=== PATIENT | male | born 1980 | race Caucasian/White ===

== ENCOUNTER 2016-04-27 21:32 | Emergency (ER) | payer OTHER ==
[~2016-04-27] VITALS: Ht 172.7 cm; Wt 76.9 kg
[2016-04-27 23:55] LABS: EOSINOPHIL (%) 3.1 % (0-5); EOSINOPHIL COUNT 0.3 K/uL (0-0.3); IMMATURE GRANULOCYTE (%) 0.3 % (0.0-0.7); IMMATURE GRANULOCYTE COUNT 0.3 K/uL; LYMPHOCYTE COUNT 1.9 K/uL (1.0-2.8); MCH 32.7 PG (29.0-34.0); MCHC 35.6 G/DL (30.0-36.0); MCV 91.9 FL (86-99); MEAN PLAT.VOLUME 9.6 uM^3 (9.0-12.4); MONOCYTE (%) 9.5 % (3-12); NEUTROPHIL (%) 68.3 % (45-76); NEUTROPHIL COUNT 6.9 K/uL (1.8-6.4); PLATELET COUNT 243 K/uL (156-360); RBC DIS.WIDTH-CV 12.6 % (11.8-14.6); RBC DIS.WIDTH-SD 40.9 % (39-53); RED BLOOD COUNT 4.68 M/uL (4.00-5.50)
[2016-04-28 00:05] LABS: CHLORIDE 104 mEq/L (99-109); POTASSIUM 3.7 mEq/L (3.7-5.4); SODIUM 138 mEq/L (136-147)
[2016-04-28 00:07] LABS: GLUCOSE 101 mg/dL (70-99)
[2016-04-28 00:08] LABS: ANION GAP 12 MEQ/L (2-14)
[2016-04-28 00:11] LABS: GFR ESTIMATE (CALCULATED) > 59 mL/min/; UREA NITROGEN (BUN) 16 mg/dL (9-23)
[2016-04-28] MEDS ORDERED: CLINDAMYCIN HC300 MG PO (01:08)
[2016-04-28] MEDS ORDERED: PERCOCET 5/31 TABLET PO (01:21)
[2016-04-28] MEDS ORDERED: MOTRIN800 MG PO (01:26)
[2016-04-28 01:39] VITALS: BP 149/95
== END 2016-04-28 02:07 | disposition home or self-care (01) ==
LOC: EME 21:32
PROVIDERS: Emergency Medicine
PROC: 0C96XZZ Drainage of Lower Gingiva, External Approach (ICD-10-PCS; principal; 2016-04-27)
DX: K04.7 Periapical abscess without sinus (principal)
CPT/HCPCS: 70491; 80048; 83605; 85025; 87040; 99281; 99285; J1170; J1885; J3010; J7030